=== PATIENT | female | born 1965 | race Caucasian/White ===

== ENCOUNTER 2021-07-04 11:48 | Emergency (ER) | payer BC ==
[2021-07-04 12:33] VITALS: BP 123/80; PULSE 80; RESP 17; TEMP 98
[2021-07-04] MEDS ORDERED: RABIES IMMUNE GLOB 300 UNIT/ML 1 ML VIAL IM ONE (13:07)
[2021-07-04] MEDS ORDERED: DIPH,PERTUS(ACELL)TETVAC-LF 0.5 ML VIAL IM ONE (13:07)
[2021-07-04] MEDS ORDERED: RABIES VACCINE (PCEC) 2.5 UNIT KIT IM ONE (13:07)
[2021-07-04] MEDS ORDERED: AMOXIC-POT CLAV 875-125MG 1 EACH TAB PO STA (13:07)
--- NOTE | 2021-07-04 13:10 | ED ---
General Adult HPI - General Chief complaint: Animal Bite Stated complaint: dog bite lt arm Time Seen by Provider: 07/04/21 12:50 Source: patient Mode of arrival: ambulatory Limitations: no limitations - History of Present Illness Initial comments: 55-year-old female presents to the emergency room for chief complaint of dog bite. Patient reports that her dog attacked her left arm yesterday when she was trying to look at its gums. She states that this was very unusual for this dog and she had had it for 5 years. Her pulled the dog off her however the dog tried to attack her second time. Patient reports that their dog was vaccinated for rabies but had a run-in with a raccoon a few weeks ago. He has had a slight cough. She went to urgent care but they were concerned for rabies and patient wanted to be vaccinated. Patient has no other complaints at this time including shortness of breath, chest pain, abdominal pain, nausea or vomiti ng, headache, or visual changes. - Related Data Home Medications Medication Instructions Recorded Confirmed Aspirin [Adult Low Dose Aspirin EC] 81 mg PO DAILY 05/31/16 05/31/16 Atorvastatin [Lipitor] 20 mg PO DAILY 05/31/16 05/31/16 Cetirizine HCl [Zyrtec] 5 mg PO DAILY 05/31/16 05/31/16 Losartan Potassium 100 mg PO QAM 05/31/16 05/31/16 Nebivolol HCl [Bystolic] 10 mg PO HS 05/31/16 05/31/16 metFORMIN HCL [Glucophage XR] 1,000 mg PO QAM 05/31/16 05/31/16 metFORMIN HCL [Glucophage] 500 mg PO HS 05/31/16 05/31/16 Allergies Allergy/AdvReac Type Severity Reaction Status Date / Time environmental AdvReac Cough Uncoded 05/31/16 15:10 Review of Systems ROS Statement: Those systems with pertinent positive or pertinent negative responses have been documented in the HPI. ROS Other: All systems not noted in ROS Statement are negative. Past Medical History Past Medical History: Diabetes Mellitus, Hyperlipidemia, Hypertension History of Any Multi-Drug Resistant Organisms: None Reported Past Surgical History: Section, Cholecystectomy Past Anesthesia/Blood Transfusion Reactions: No Reported Reaction Past Psychological History: No Psychological Hx Reported Smoking Status: Never smoker Past Alcohol Use History: None Reported Past Drug Use History: None Reported General Exam Limitations: no limitations General appearance: alert, in no apparent distress Head exam: Present: atraumatic Eye exam: Present: normal appearance, PERRL, EOMI. Absent: scleral icterus, conjunctival injection ENT exam: Present: normal exam, mucous membranes moist Neck exam: Present: normal inspection, full ROM. Absent: tenderness Respiratory exam: Present: normal lung sounds bilaterally. Absent: respiratory distress, wheezes Cardiovascular Exam: Present: regular rate, normal rhythm, normal heart sounds Extremities exam: Present: other (She has multiple superficial lacerations of the left upper arm, not requiring sutures. No sign of infection at this time such as erythema or purulent drainage or streaking redness.) Course Vital Signs 07/04/21 12:28 Temperature 98.0 F Pulse Rate 80 Respiratory 17 Rate Blood Pressure 123/80 O2 Sat by Pulse 94 L Oximetry Medical Decision Making - Medical Decision Making Vitals are stable. Patient is well-appearing. Patient presents for rabies immunization. Patient went to urgent care and they told her she needs them despite it being her dog. He has been vaccinated at some point but she is not sure when. They did put the dog down and her testing him for rabies. I did inform patient that she does not necessarily need rabies immunization at this time either testing the dog however she strongly wants this performed. Patient was given these immunizations. She was started on Augmentin and tetanus was updated. She refuses x-ray of the left arm to rule out any foreign bodies. She will follow-up with her doctor. She will return for any worsening symptoms. Disposition Clinical Impression: Dog bite Disposition: HOME SELF-CARE Instructions (If sedation given, give patient instructions): Animal Bite (ED) Additional Instructions: Please follow up with your doctor in one to 2 days. Return to the emergency room for any worsening symptoms. Is patient prescribed a controlled substance at d/c from ED?: No Referrals: Jose Navarrete Jr, DO [Primary Care Provider] - 1-2 days Time of Disposition: 14:30
[2021-07-04] MEDS ORDERED: RABIES IMMUNE GLOB 300 UNIT/ML 5 ML VIAL IM ONE (13:15)
== END 2021-07-04 14:41 | disposition home or self-care (01) ==
LOC: EC 11:48
DX: S41.152A Open bite of left upper arm, initial encounter (principal); E11.9 Type 2 diabetes mellitus without complications; I10 Essential (primary) hypertension; E78.5 Hyperlipidemia, unspecified; Z79.84 Long term (current) use of oral hypoglycemic drugs; Z79.82 Long term (current) use of aspirin; Z79.899 Other long term (current) drug therapy; W54.0XXA Bitten by dog, initial encounter
CPT/HCPCS: 90375; 90471; 90675; 90715; 96372; 99283